=== PATIENT | female | born 1935 | race African-American/Black ===

== ENCOUNTER 2018-03-29 16:15 | Inpatient (IN) | payer MEDICARE, BC ==
[~2018-03-29] VITALS: Ht 162.6 cm; Wt 88.6 kg
[~2018-03-29 16:15] MED LIST: ALPR-341 PO; ALPR-394 PO; APIX5TAB PO; AZAT50TA24 PO; CELE100C PO; FLUO40CA8 PO; HYDR200T35 PO; LEVO100T9 PO; MELO-106 PO; MIRT15TA6 PO; NEBI20TA2 PO; OLAN5TAB26 PO; OMEP20TA2 PO; PRAV20TA57 PO; PRED5TAB48 PO; VERA240C2 PO
[2018-03-29 17:56] VITALS: BP 137/80
[2018-03-29] MEDS ORDERED: MAGNESIUM/ALUMINUM HYDROXIDE/SIMETHICONE 30ML UDC PO PRN (18:30)
[2018-03-29] MEDS ORDERED: CLONIDINE 0.1MG TABLET PO PRN (18:30)
[2018-03-29] MEDS ORDERED: ONDANSETRON HCL 4MG/2ML INJ IV PRN (18:30)
[2018-03-29 20:00] VITALS: BP 141/66
[2018-03-29] MEDS ORDERED: SODIUM CHL 0.9% + KCL 20MEQ/L 1,000 ML IV SCH (20:30)
[2018-03-29] MEDS ORDERED: ALPRAZOLAM 0.5 MG TABLET PO PRN (22:00)
[2018-03-29] MEDS: CEPHALEXIN 250MG CAPSULE PO SCH (23:42)
[2018-03-30 06:04] LABS: EOSINOPHILS % 1.4 % (0.0-5.0); HEMATOCRIT. 36.2 % (36.0-48.0); LYMPHOCYTES % 16.4 % (20.0-50.0); MEAN CORPUSCULAR HEMOGLOBIN 28.3 pg (28.0-32.0); MEAN CORPUSCULAR VOLUME 85.4 fL (81.0-99.0); MEAN PLATELET VOLUME 7.3 fl (7.4-10.4); MONOCYTES % 11.4 % (2.0-8.0); NEUTROPHILS % 69.8 % (40.0-76.0); PLATELET 272 x1000/uL (130-400); RED BLOOD CELL COUNT 4.24 mill/uL (4.2-5.4); RED CELL DISTRIBUTION WIDTH 16.1 % (11.6-14.6)
[2018-03-30] MEDS: LEVOTHYROXINE SODIUM 100MCG TABLET PO SCH (06:21)
[2018-03-30] MEDS: CEPHALEXIN 250MG CAPSULE PO SCH ×3 (06:22→17:44)
[2018-03-30] MEDS: OMEPRAZOLE 20MG CAPSULE EXTENDED RELEASE PO SCH (06:22)
[2018-03-30 06:26] LABS: CHLORIDE 104 mEq/L (98-107)
[2018-03-30 08:00] VITALS: BP 126/60
[2018-03-30] MEDS: APIXABAN 5 MG TABLET PO SCH ×2 (08:56→17:44)
[2018-03-30] MEDS: FLUOXETINE HCL 20MG CAPSULE PO SCH (08:56)
[2018-03-30] MEDS: OLANZAPINE 5MG TABLET PO SCH (08:56)
[2018-03-30] MEDS: POTASSIUM CHLORIDE 10MEQ TABLET SR PO SCH (08:57)
[2018-03-30] MEDS: PREDNISONE 1MG TABLET PO SCH (10:23)
[2018-03-30] MEDS: HYDROXYCHLOROQUINE SULFATE 200MG TABLET PO SCH (10:23)
[2018-03-30] MEDS: ACETAMINOPHEN 650MG/20.3ML UDC PO PRN (12:42)
[2018-03-30] MEDS: MIRTAZAPINE 15MG TABLET PO SCH (12:42)
[2018-03-30] MEDS ORDERED: ALPRAZOLAM 0.5 MG TABLET PO SCH (13:00)
[2018-03-30 20:00] VITALS: BP 135/76
[2018-03-30] MEDS: VERAPAMIL HCL 120MG TABLET PO SCH (20:26)
[2018-03-30] MEDS: ALPRAZOLAM 0.5 MG TABLET PO SCH (20:35)
[2018-03-31] MEDS: CEPHALEXIN 250MG CAPSULE PO SCH ×5 (00:07→23:01)
[2018-03-31] MEDS: OMEPRAZOLE 20MG CAPSULE EXTENDED RELEASE PO SCH (06:12)
[2018-03-31] MEDS: LEVOTHYROXINE SODIUM 100MCG TABLET PO SCH (06:24)
[2018-03-31 08:04] VITALS: BP 147/67
[2018-03-31] MEDS: OLANZAPINE 5MG TABLET PO SCH (09:44)
[2018-03-31] MEDS: APIXABAN 5 MG TABLET PO SCH ×2 (09:44→17:41)
[2018-03-31] MEDS: ALPRAZOLAM 0.5 MG TABLET PO SCH ×2 (09:44→20:03)
[2018-03-31] MEDS: HYDROXYCHLOROQUINE SULFATE 200MG TABLET PO SCH (09:44)
[2018-03-31] MEDS: FLUOXETINE HCL 20MG CAPSULE PO SCH (09:44)
[2018-03-31] MEDS: PREDNISONE 1MG TABLET PO SCH (09:44)
[2018-03-31] MEDS: POTASSIUM CHLORIDE 10MEQ TABLET SR PO SCH (09:44)
[2018-03-31] MEDS: MIRTAZAPINE 15MG TABLET PO SCH (14:11)
[2018-03-31 14:47] LABS: CLARITY URINE CLEAR (CLEAR); COLOR URINE YELLOW (YELLOW); KETONES URINE NEGATIVE (NEGATIVE); LEUKOCYTE ESTERASE URINE TRACE (NEGATIVE); NITRITE URINE NEGATIVE (NEGATIVE); OCCULT BLOOD URINE NEGATIVE (NEGATIVE); PH URINE 6.5 (4.5-8.0); PROTEIN URINE NEGATIVE (NEGATIVE); SPECIFIC GRAVITY URINE 1.012 (1.005-1.030); UROBILINOGEN URINE 0.2 E.U./dL (0.2-1.0)
[2018-03-31] MEDS: ACETAMINOPHEN 650MG/20.3ML UDC PO PRN (18:05)
[2018-03-31 20:00] VITALS: BP 121/54
[2018-03-31] MEDS: VERAPAMIL HCL 120MG TABLET PO SCH (20:04)
[2018-04-01] MEDS: CEPHALEXIN 250MG CAPSULE PO SCH ×3 (06:06→17:49)
[2018-04-01] MEDS: LEVOTHYROXINE SODIUM 100MCG TABLET PO SCH (06:06)
[2018-04-01 06:47] LABS: BASOPHILS % 0.8 % (0.0-2.0); EOSINOPHILS % 2.6 % (0.0-5.0); HEMATOCRIT. 35.7 % (36.0-48.0); HEMOGLOBIN. 11.8 g/dL (12.0-16.0); MEAN CORPUSCULAR HEMOGLOBIN 28.3 pg (28.0-32.0); MEAN CORPUSCULAR VOLUME 85.7 fL (81.0-99.0); MEAN PLATELET VOLUME 7.5 fl (7.4-10.4); MONOCYTES % 13.1 % (2.0-8.0); NEUTROPHILS % 66.5 % (40.0-76.0); PLATELET 273 x1000/uL (130-400); RED BLOOD CELL COUNT 4.16 mill/uL (4.2-5.4); RED CELL DISTRIBUTION WIDTH 15.8 % (11.6-14.6)
[2018-04-01 07:05] LABS: CHLORIDE 102 mEq/L (98-107)
[2018-04-01 07:06] LABS: FERRITIN 26 ng/mL (10-291)
[2018-04-01 07:18] LABS: FOLIC ACID (FOLATE) SERUM >20 ng/mL ng/mL (>5.38); VITAMIN B12 SERUM 459 pg/mL (211-911)
[2018-04-01 07:30] LABS: TOTAL IRON BINDING CAPACITY 316 ug/dL (250-450)
[2018-04-01 08:06] VITALS: BP 116/57
[2018-04-01] MEDS: ALPRAZOLAM 0.5 MG TABLET PO SCH ×2 (08:20→21:07)
[2018-04-01] MEDS: OLANZAPINE 5MG TABLET PO SCH (08:21)
[2018-04-01] MEDS: HYDROXYCHLOROQUINE SULFATE 200MG TABLET PO SCH (08:21)
[2018-04-01] MEDS: POTASSIUM CHLORIDE 10MEQ TABLET SR PO SCH (08:21)
[2018-04-01] MEDS: FAMOTIDINE 20MG TABLET PO SCH (08:21)
[2018-04-01] MEDS: FLUOXETINE HCL 20MG CAPSULE PO SCH (08:22)
[2018-04-01] MEDS: APIXABAN 5 MG TABLET PO SCH ×2 (08:22→17:48)
[2018-04-01] MEDS: PREDNISONE 1MG TABLET PO SCH (08:22)
[2018-04-01] MEDS: MIRTAZAPINE 15MG TABLET PO SCH (11:38)
[2018-04-01] MEDS: ACETAMINOPHEN 650MG/20.3ML UDC PO PRN (13:11)
[2018-04-01] MEDS ORDERED: CYANOCOBALAMIN 1000MCG/ML VIAL IM NR (13:30)
[2018-04-01] MEDS: ASCORBIC ACID 500 MG TABLET PO SCH (15:42)
[2018-04-01] MEDS: FERROUS SULFATE 325MG TABLET PO SCH (17:50)
[2018-04-01 20:00] VITALS: BP 117/51
[2018-04-01] MEDS: VERAPAMIL HCL 120MG TABLET PO SCH (21:00)
[2018-04-02] MEDS: CEPHALEXIN 250MG CAPSULE PO SCH ×5 (00:30→23:53)
[2018-04-02] MEDS: LEVOTHYROXINE SODIUM 100MCG TABLET PO SCH (06:38)
[2018-04-02 08:00] VITALS: BP 123/64
[2018-04-02] MEDS: APIXABAN 5 MG TABLET PO SCH ×2 (08:45→17:10)
[2018-04-02] MEDS: ASCORBIC ACID 500 MG TABLET PO SCH (08:45)
[2018-04-02] MEDS: OLANZAPINE 5MG TABLET PO SCH (08:45)
[2018-04-02] MEDS: FERROUS SULFATE 325MG TABLET PO SCH ×3 (08:45→17:10)
[2018-04-02] MEDS: PREDNISONE 1MG TABLET PO SCH (08:45)
[2018-04-02] MEDS: HYDROXYCHLOROQUINE SULFATE 200MG TABLET PO SCH (08:45)
[2018-04-02] MEDS: FAMOTIDINE 20MG TABLET PO SCH (08:45)
[2018-04-02] MEDS: ALPRAZOLAM 0.5 MG TABLET PO SCH ×2 (08:46→21:00)
[2018-04-02] MEDS: POTASSIUM CHLORIDE 10MEQ TABLET SR PO SCH (08:46)
[2018-04-02] MEDS: FLUOXETINE HCL 20MG CAPSULE PO SCH (08:54)
[2018-04-02] MEDS: ACETAMINOPHEN 650MG/20.3ML UDC PO PRN (11:41)
[2018-04-02] MEDS: MIRTAZAPINE 15MG TABLET PO SCH (12:04)
[2018-04-02] MEDS: CELECOXIB 100MG CAPSULE PO SCH (14:36)
[2018-04-02] MEDS: LIDOCAINE 5% PATCH TOP SCH (14:39)
[2018-04-02 20:00] VITALS: BP 131/63
[2018-04-02] MEDS: VERAPAMIL HCL 120MG TABLET PO SCH (20:45)
[2018-04-03] MEDS: DIPHENHYDRAMINE 25MG CAPSULE PO PRN (06:10)
[2018-04-03] MEDS: CEPHALEXIN 250MG CAPSULE PO SCH ×4 (06:10→23:13)
[2018-04-03] MEDS: LEVOTHYROXINE SODIUM 100MCG TABLET PO SCH (06:48)
[2018-04-03 07:14] LABS: BASOPHILS % 0.4 % (0.0-2.0); EOSINOPHILS % 3.3 % (0.0-5.0); HEMOGLOBIN. 11.8 g/dL (12.0-16.0); LYMPHOCYTES % 16.6 % (20.0-50.0); MEAN CORPUSCULAR HEMOGLOBIN 28.4 pg (28.0-32.0); MEAN CORPUSCULAR VOLUME 86.4 fL (81.0-99.0); MEAN PLATELET VOLUME 7.8 fl (7.4-10.4); MONOCYTES % 12.8 % (2.0-8.0); NEUTROPHILS % 66.9 % (40.0-76.0); PLATELET 268 x1000/uL (130-400); RED BLOOD CELL COUNT 4.17 mill/uL (4.2-5.4); RED CELL DISTRIBUTION WIDTH 16.1 % (11.6-14.6)
[2018-04-03 08:07] VITALS: BP 137/58
[2018-04-03] MEDS ORDERED: ALPRAZOLAM 0.5 MG TABLET PO SCH (09:00)
[2018-04-03] MEDS: POTASSIUM CHLORIDE 10MEQ TABLET SR PO SCH (09:11)
[2018-04-03] MEDS: FAMOTIDINE 20MG TABLET PO SCH (09:12)
[2018-04-03] MEDS: PREDNISONE 1MG TABLET PO SCH (09:12)
[2018-04-03] MEDS: ASCORBIC ACID 500 MG TABLET PO SCH (09:12)
[2018-04-03] MEDS: OLANZAPINE 5MG TABLET PO SCH (09:12)
[2018-04-03] MEDS: APIXABAN 5 MG TABLET PO SCH ×2 (09:12→17:45)
[2018-04-03] MEDS: HYDROXYCHLOROQUINE SULFATE 200MG TABLET PO SCH (09:12)
[2018-04-03] MEDS: FERROUS SULFATE 325MG TABLET PO SCH ×3 (09:12→17:45)
[2018-04-03] MEDS: FLUOXETINE HCL 20MG CAPSULE PO SCH (09:13)
[2018-04-03] MEDS: CELECOXIB 100MG CAPSULE PO SCH (09:13)
[2018-04-03] MEDS: LIDOCAINE 5% PATCH TOP SCH (09:15)
[2018-04-03] MEDS: MIRTAZAPINE 15MG TABLET PO SCH (11:38)
[2018-04-03] MEDS: ACETAMINOPHEN 650MG/20.3ML UDC PO PRN (13:34)
[2018-04-03 20:00] VITALS: BP 124/56
[2018-04-03] MEDS: VERAPAMIL HCL 120MG TABLET PO SCH (20:45)
[2018-04-03] MEDS: ALPRAZOLAM 0.25 MG TABLET PO SCH (22:28)
[2018-04-04] MEDS: CEPHALEXIN 250MG CAPSULE PO SCH ×4 (06:10→23:26)
[2018-04-04] MEDS: LEVOTHYROXINE SODIUM 100MCG TABLET PO SCH (06:57)
[2018-04-04 07:58] VITALS: BP 121/49
[2018-04-04] MEDS: OLANZAPINE 5MG TABLET PO SCH (08:26)
[2018-04-04] MEDS: ASCORBIC ACID 500 MG TABLET PO SCH (08:26)
[2018-04-04] MEDS: FERROUS SULFATE 325MG TABLET PO SCH ×3 (08:26→17:41)
[2018-04-04] MEDS: HYDROXYCHLOROQUINE SULFATE 200MG TABLET PO SCH (08:26)
[2018-04-04] MEDS: PREDNISONE 1MG TABLET PO SCH (08:26)
[2018-04-04] MEDS: CELECOXIB 100MG CAPSULE PO SCH (08:26)
[2018-04-04] MEDS: POTASSIUM CHLORIDE 10MEQ TABLET SR PO SCH (08:27)
[2018-04-04] MEDS: APIXABAN 5 MG TABLET PO SCH ×2 (08:27→17:41)
[2018-04-04] MEDS: FLUOXETINE HCL 20MG CAPSULE PO SCH (08:27)
[2018-04-04] MEDS: ALPRAZOLAM 0.25 MG TABLET PO SCH (08:27)
[2018-04-04] MEDS: LIDOCAINE 5% PATCH TOP SCH (08:28)
[2018-04-04] MEDS: FAMOTIDINE 20MG TABLET PO SCH (08:30)
[2018-04-04] MEDS: MIRTAZAPINE 15MG TABLET PO SCH (12:15)
[2018-04-04] MEDS ORDERED: ALPRAZOLAM 0.5 MG TABLET PO NR (18:18)
[2018-04-04] MEDS ORDERED: LACTULOSE 20G/30ML UDC PO PRN (19:00)
[2018-04-04] MEDS ORDERED: BISACODYL 5MG TABLET PO PRN (19:00)
[2018-04-04 20:00] VITALS: BP 117/52
[2018-04-04] MEDS: CELECOXIB 200MG CAPSULE PO NR (20:52)
[2018-04-04] MEDS: METHYLPREDNISOLONE 4MG TABLET PO NR (20:52)
[2018-04-04] MEDS: VERAPAMIL HCL 120MG TABLET PO SCH (20:53)
[2018-04-04] MEDS ORDERED: ALPRAZOLAM 0.25 MG TABLET PO PRN (21:00)
[2018-04-05] MEDS: CEPHALEXIN 250MG CAPSULE PO SCH ×3 (05:24→17:13)
[2018-04-05] MEDS: LEVOTHYROXINE SODIUM 100MCG TABLET PO SCH (06:53)
[2018-04-05 07:08] LABS: BASOPHILS % 0.6 % (0.0-2.0); EOSINOPHILS % 0.4 % (0.0-5.0); HEMATOCRIT. 36.1 % (36.0-48.0); HEMOGLOBIN. 11.8 g/dL (12.0-16.0); LYMPHOCYTES % 11.8 % (20.0-50.0); MEAN CORPUSCULAR HEMOGLOBIN 28.6 pg (28.0-32.0); MEAN PLATELET VOLUME 7.6 fl (7.4-10.4); NEUTROPHILS % 79.2 % (40.0-76.0); PLATELET 280 x1000/uL (130-400); RED BLOOD CELL COUNT 4.14 mill/uL (4.2-5.4); RED CELL DISTRIBUTION WIDTH 16.3 % (11.6-14.6)
[2018-04-05 08:04] VITALS: BP 130/60
[2018-04-05 08:12] LABS: CHLORIDE 101 mEq/L (98-107)
[2018-04-05 08:14] LABS: PHOSPHORUS 4.5 mg/dL (2.5-4.9)
[2018-04-05] MEDS: FERROUS SULFATE 325MG TABLET PO SCH ×3 (09:17→17:13)
[2018-04-05] MEDS: LIDOCAINE 5% PATCH TOP SCH (09:17)
[2018-04-05] MEDS: FAMOTIDINE 20MG TABLET PO SCH (09:18)
[2018-04-05] MEDS: METHYLPREDNISOLONE 4MG TABLET PO SCH (09:18)
[2018-04-05] MEDS: ASCORBIC ACID 500 MG TABLET PO SCH (09:18)
[2018-04-05] MEDS: ZINC SULFATE 220 MG ( 50 ) CAPSULE PO SCH (09:18)
[2018-04-05] MEDS: CELECOXIB 200MG CAPSULE PO SCH ×2 (09:18→17:13)
[2018-04-05] MEDS: APIXABAN 5 MG TABLET PO SCH ×2 (09:18→17:13)
[2018-04-05] MEDS: FLUOXETINE HCL 20MG CAPSULE PO SCH (09:19)
[2018-04-05] MEDS: OLANZAPINE 5MG TABLET PO SCH (09:19)
[2018-04-05] MEDS: ALPRAZOLAM 0.5 MG TABLET PO SCH ×2 (09:19→17:14)
[2018-04-05] MEDS: HYDROXYCHLOROQUINE SULFATE 200MG TABLET PO SCH (09:19)
[2018-04-05] MEDS: MIRTAZAPINE 15MG TABLET PO SCH (12:56)
[2018-04-05 15:07] LABS: ANA IFA Negative (.)
[2018-04-05 19:11] LABS: 25-HYDROXY VITAMIN D3 3.3 ng/mL (.)
[2018-04-05 20:00] VITALS: BP 137/62
[2018-04-05] MEDS: CELECOXIB 200MG CAPSULE PO NR (20:00)
[2018-04-05] MEDS: METHYLPREDNISOLONE 4MG TABLET PO NR (20:00)
[2018-04-05] MEDS: VERAPAMIL HCL 120MG TABLET PO SCH (21:02)
[2018-04-06] MEDS: CEPHALEXIN 250MG CAPSULE PO SCH (00:34)
[2018-04-06] MEDS: LEVOTHYROXINE SODIUM 100MCG TABLET PO SCH (06:10)
[2018-04-06 08:00] VITALS: BP 139/66
[2018-04-06] MEDS: METHYLPREDNISOLONE 4MG TABLET PO SCH (08:45)
[2018-04-06] MEDS: APIXABAN 5 MG TABLET PO SCH ×2 (08:45→17:08)
[2018-04-06] MEDS: ZINC SULFATE 220 MG ( 50 ) CAPSULE PO SCH (08:45)
[2018-04-06] MEDS: FLUOXETINE HCL 20MG CAPSULE PO SCH (08:45)
[2018-04-06] MEDS: HYDROXYCHLOROQUINE SULFATE 200MG TABLET PO SCH (08:45)
[2018-04-06] MEDS: CELECOXIB 200MG CAPSULE PO SCH ×2 (08:45→17:08)
[2018-04-06] MEDS: ASCORBIC ACID 500 MG TABLET PO SCH (08:45)
[2018-04-06] MEDS: FERROUS SULFATE 325MG TABLET PO SCH ×3 (08:45→17:08)
[2018-04-06] MEDS: FAMOTIDINE 20MG TABLET PO SCH (08:45)
[2018-04-06] MEDS: ALPRAZOLAM 0.5 MG TABLET PO SCH ×2 (08:46→17:08)
[2018-04-06] MEDS: LIDOCAINE 5% PATCH TOP SCH (08:47)
[2018-04-06] MEDS: DIPHENHYDRAMINE 25MG CAPSULE PO PRN (11:48)
[2018-04-06 20:00] VITALS: BP 140/67
[2018-04-06] MEDS: VERAPAMIL HCL 120MG TABLET PO SCH (21:56)
[2018-04-07] MEDS: LEVOTHYROXINE SODIUM 100MCG TABLET PO SCH (06:25)
[2018-04-07 08:00] VITALS: BP 137/63
[2018-04-07] MEDS: ZINC SULFATE 220 MG ( 50 ) CAPSULE PO SCH (08:41)
[2018-04-07] MEDS: ASCORBIC ACID 500 MG TABLET PO SCH (08:41)
[2018-04-07] MEDS: APIXABAN 5 MG TABLET PO SCH ×2 (08:41→17:31)
[2018-04-07] MEDS: FLUOXETINE HCL 20MG CAPSULE PO SCH (08:41)
[2018-04-07] MEDS: METHYLPREDNISOLONE 4MG TABLET PO SCH (08:42)
[2018-04-07] MEDS: FERROUS SULFATE 325MG TABLET PO SCH ×3 (08:42→17:31)
[2018-04-07] MEDS: HYDROXYCHLOROQUINE SULFATE 200MG TABLET PO SCH (08:42)
[2018-04-07] MEDS: FAMOTIDINE 20MG TABLET PO SCH (08:42)
[2018-04-07] MEDS: LIDOCAINE 5% PATCH TOP SCH (08:43)
[2018-04-07] MEDS: ALPRAZOLAM 0.5 MG TABLET PO SCH ×2 (10:18→17:31)
[2018-04-07] MEDS: CELECOXIB 200MG CAPSULE PO SCH ×2 (10:18→17:31)
[2018-04-07 20:00] VITALS: BP 117/69
[2018-04-07] MEDS: VERAPAMIL HCL 120MG TABLET PO SCH (21:09)
[2018-04-08] MEDS: LEVOTHYROXINE SODIUM 100MCG TABLET PO SCH (06:31)
[2018-04-08 08:00] VITALS: BP 108/72
[2018-04-08] MEDS: FAMOTIDINE 20MG TABLET PO SCH (08:57)
[2018-04-08] MEDS: FERROUS SULFATE 325MG TABLET PO SCH ×3 (08:57→17:41)
[2018-04-08] MEDS: ZINC SULFATE 220 MG ( 50 ) CAPSULE PO SCH (08:57)
[2018-04-08] MEDS: APIXABAN 5 MG TABLET PO SCH ×2 (08:57→17:41)
[2018-04-08] MEDS: FLUOXETINE HCL 20MG CAPSULE PO SCH (08:57)
[2018-04-08] MEDS: ASCORBIC ACID 500 MG TABLET PO SCH (08:57)
[2018-04-08] MEDS: HYDROXYCHLOROQUINE SULFATE 200MG TABLET PO SCH (08:57)
[2018-04-08] MEDS: METHYLPREDNISOLONE 4MG TABLET PO SCH (08:57)
[2018-04-08] MEDS: ALPRAZOLAM 0.5 MG TABLET PO SCH ×2 (08:57→17:41)
[2018-04-08] MEDS: CELECOXIB 200MG CAPSULE PO SCH ×2 (08:57→17:41)
[2018-04-08] MEDS: LIDOCAINE 5% PATCH TOP SCH (09:00)
[2018-04-08 20:00] VITALS: BP 168/75
[2018-04-08 20:05] VITALS: BP 161/75
[2018-04-08 20:10] VITALS: BP 143/65
[2018-04-08] MEDS: VERAPAMIL HCL 120MG TABLET PO SCH (20:48)
[2018-04-09] MEDS: LEVOTHYROXINE SODIUM 100MCG TABLET PO SCH (06:33)
[2018-04-09 08:00] VITALS: BP 135/61
[2018-04-09] MEDS: HYDROXYCHLOROQUINE SULFATE 200MG TABLET PO SCH (08:50)
[2018-04-09] MEDS: ZINC SULFATE 220 MG ( 50 ) CAPSULE PO SCH (08:50)
[2018-04-09] MEDS: FERROUS SULFATE 325MG TABLET PO SCH ×3 (08:50→17:26)
[2018-04-09] MEDS: ASCORBIC ACID 500 MG TABLET PO SCH (08:50)
[2018-04-09] MEDS: FAMOTIDINE 20MG TABLET PO SCH (08:51)
[2018-04-09] MEDS: ALPRAZOLAM 0.5 MG TABLET PO SCH ×2 (08:51→17:26)
[2018-04-09] MEDS: METHYLPREDNISOLONE 4MG TABLET PO SCH (08:51)
[2018-04-09] MEDS: APIXABAN 5 MG TABLET PO SCH ×2 (08:51→17:30)
[2018-04-09] MEDS: FLUOXETINE HCL 20MG CAPSULE PO SCH (08:51)
[2018-04-09] MEDS: CELECOXIB 200MG CAPSULE PO SCH ×2 (08:51→17:26)
[2018-04-09] MEDS: LIDOCAINE 5% PATCH TOP SCH (08:53)
[2018-04-09 20:00] VITALS: BP 116/61
[2018-04-09] MEDS: VERAPAMIL HCL 120MG TABLET PO SCH (20:32)
[2018-04-10] MEDS: LEVOTHYROXINE SODIUM 100MCG TABLET PO SCH (06:33)
[2018-04-10 07:52] VITALS: BP 132/60
[2018-04-10] MEDS: LIDOCAINE 5% PATCH TOP SCH (09:00)
[2018-04-10] MEDS: FAMOTIDINE 20MG TABLET PO SCH (09:19)
[2018-04-10] MEDS: FERROUS SULFATE 325MG TABLET PO SCH (09:19)
[2018-04-10] MEDS: APIXABAN 5 MG TABLET PO SCH (09:20)
[2018-04-10] MEDS: METHYLPREDNISOLONE 4MG TABLET PO SCH (09:20)
[2018-04-10] MEDS: ASCORBIC ACID 500 MG TABLET PO SCH (09:20)
[2018-04-10] MEDS: CELECOXIB 200MG CAPSULE PO SCH (09:20)
[2018-04-10] MEDS: ALPRAZOLAM 0.5 MG TABLET PO SCH (09:20)
[2018-04-10] MEDS: ZINC SULFATE 220 MG ( 50 ) CAPSULE PO SCH (09:20)
[2018-04-10] MEDS: FLUOXETINE HCL 20MG CAPSULE PO SCH (09:20)
[2018-04-10] MEDS: HYDROXYCHLOROQUINE SULFATE 200MG TABLET PO SCH (09:20)
[2018-04-10 11:54] VITALS: BP 132/60
== END 2018-04-10 13:01 | disposition home health service (06) | DRG 70 ==
PROVIDERS: ADMIT Physical Medicine & Rehabilitation Spinal Cord Injury Medicine; ATTEND Internal Medicine
DX: G93.41 Metabolic encephalopathy (principal); J18.9 Pneumonia, unspecified organism; G82.50 Quadriplegia, unspecified; E87.1 Hypo-osmolality and hyponatremia; F33.9 Major depressive disorder, recurrent, unspecified; N39.0 Urinary tract infection, site not specified; B96.1 Klebsiella pneumoniae [K. pneumoniae] as the cause of diseases classified elsewhere; E03.9 Hypothyroidism, unspecified; E66.01 Morbid (severe) obesity due to excess calories; E78.00 Pure hypercholesterolemia, unspecified; E78.5 Hyperlipidemia, unspecified; F41.9 Anxiety disorder, unspecified; H91.90 Unspecified hearing loss, unspecified ear; I11.0 Hypertensive heart disease with heart failure; I49.5 Sick sinus syndrome; I50.9 Heart failure, unspecified; K44.9 Diaphragmatic hernia without obstruction or gangrene; M06.9 Rheumatoid arthritis, unspecified; M32.9 Systemic lupus erythematosus, unspecified; M50.30 Other cervical disc degeneration, unspecified cervical region; N28.9 Disorder of kidney and ureter, unspecified; M19.019 Primary osteoarthritis, unspecified shoulder; G31.84 Mild cognitive impairment of uncertain or unknown etiology; R26.9 Unspecified abnormalities of gait and mobility; R42 Dizziness and giddiness; D50.9 Iron deficiency anemia, unspecified; Z86.711 Personal history of pulmonary embolism; Z86.718 Personal history of other venous thrombosis and embolism; Z87.441 Personal history of nephrotic syndrome; Z95.0 Presence of cardiac pacemaker; Z68.33 Body mass index [BMI] 33.0-33.9, adult
CPT/HCPCS: 36415; 73030; 80048; 82306; 82607; 82728; 82746; 82962; 83540; 83550; 83735; 84100; 84134; 84443; 84550; 84630; 85651; 86256; 86431; 92508; 92523; 92610; 93970; 97110; 97116; 97150; 97162; 97166; 97530; 97535; A6261; G0515; J3420; J3480; J7509; J7512; Q0163